=== PATIENT | male | born 1960 | race Caucasian/White ===

== ENCOUNTER 2020-10-17 18:40 | Inpatient (IN) | payer MEDICARE, OTHER ==
[~2020-10-17] VITALS: Ht 175.3 cm; Wt 90.7 kg
[2020-10-18] MEDS ORDERED: PROTONIX40 MG PO (14:10)
[2020-10-18] MEDS ORDERED: LISINOPRIL20 MG PO (14:10)
[2020-10-18 15:24] LABS: HEMOGLOBIN 8.2 gm/dl (14.0-17.5); RED BLOOD COUNT 3.7 M/UL (4.20-5.50); WHITE BLOOD COUNT 8.7 K/UL (4.5-11.0)
[2020-10-18 16:03] LABS: BUN/CREATININE RATIO 14 (0-10)
[2020-10-19 02:31] LABS: HEMOGLOBIN 7.5 gm/dl (14.0-17.5); RED BLOOD COUNT 3.52 M/UL (4.20-5.50); WHITE BLOOD COUNT 6.8 K/UL (4.5-11.0)
[2020-10-19 03:34] LABS: BUN/CREATININE RATIO 17 (0-10)
--- NOTE | 2020-10-19 11:25 | NUR ---
PER MD PATIENT TO RECEIVE HUMATE-P PER IV. DISCUSSED WITH PHARMACY PROPER IV ADMINISTRATION OF THIS MEDICATION. PATIENT STATES HE HAS HAD THIS MEDICATION IN THE PAST AND TOLERATED WELL. MD AWARE. INSTRUCTED TO HOLD PRBC'S TODAY. MD AND NURSE PRACTITIONER PHYSICIANS ASSISTANT AWARE
--- NOTE | 2020-10-19 12:58 | NUR ---
PATIENT HUMATE INFUSION FINISHED. PATIENT TOLERATED WELL. ALL VS REMAIN WNL
--- NOTE | 2020-10-19 14:18 | NUR ---
TRANSFER PATIENT BACK TO CHAIR, ASSIST OF 2 AND WALKER. PATIENT TRANSFERRED WITH NO TROUBLE NON WEIGHT BEARING TO THE LEFT LEG, PIVOT ON RIGHT, RESTING QUIETLY WILL CONTINUE TO MONITOR
[2020-10-19 19:22] LABS: HEMOGLOBIN 7.7 gm/dl (14.0-17.5); RED BLOOD COUNT 3.47 M/UL (4.20-5.50)
[2020-10-19 19:23] LABS: WHITE BLOOD COUNT 4.8 K/UL (4.5-11.0)
[2020-10-20 02:38] LABS: HEMOGLOBIN 7.5 gm/dl (14.0-17.5); RED BLOOD COUNT 3.39 M/UL (4.20-5.50); WHITE BLOOD COUNT 4.6 K/UL (4.5-11.0)
[2020-10-20 03:02] LABS: BUN/CREATININE RATIO 16 (0-10)
[2020-10-21 01:44] LABS: HEMOGLOBIN 7.8 gm/dl (14.0-17.5); RED BLOOD COUNT 3.59 M/UL (4.20-5.50)
[2020-10-21 02:42] LABS: BUN/CREATININE RATIO 16 (0-10)
[2020-10-21 05:09] LABS: HBSAG SCREEN Negative (Negative); HEP A AB, IGM Negative (Negative); HEP B CORE AB, IGM Negative (Negative); HEP C VIRUS AB >11.0 (0.0-0.9)
[2020-10-21] MEDS ORDERED: ISOSORBIDE MONO30 MG PO (09:19)
[2020-10-21] MEDS ORDERED: ATORVASTATIN CA20 MG PO (09:19)
[2020-10-21] MEDS ORDERED: FERROUS SULFAT325 MG PO (12:10)
== END 2020-10-21 11:45 | disposition home or self-care (01) | DRG 273 ==
LOC: PROG CARE 10-18 13:34
PROVIDERS: Physician Assistant Medical; ADMIT Internal Medicine
PROC: B24BZZZ Ultrasonography of Heart with Aorta (ICD-10-PCS; 2020-10-19)
PROC: 02583ZZ Destruction of Conduction Mechanism, Percutaneous Approach (ICD-10-PCS; principal; 2020-10-20)
PROC: 02K83ZZ Map Conduction Mechanism, Percutaneous Approach (ICD-10-PCS; 2020-10-20)
PROC: 4A023FZ Measurement of Cardiac Rhythm, Percutaneous Approach (ICD-10-PCS; 2020-10-20)
PROC: 4A0234Z Measurement of Cardiac Electrical Activity, Percutaneous Approach (ICD-10-PCS; 2020-10-20)
DX: I47.1 Supraventricular tachycardia (principal); K55.21 Angiodysplasia of colon with hemorrhage; D68.0 Von Willebrand disease; D50.9 Iron deficiency anemia, unspecified; I10 Essential (primary) hypertension; Z20.822 Contact with and (suspected) exposure to COVID-19; B18.2 Chronic viral hepatitis C; R55 Syncope and collapse; R07.9 Chest pain, unspecified; J44.9 Chronic obstructive pulmonary disease, unspecified; I20.9 Angina pectoris, unspecified; S40.011A Contusion of right shoulder, initial encounter; K74.60 Unspecified cirrhosis of liver; F17.210 Nicotine dependence, cigarettes, uncomplicated; Z88.6 Allergy status to analgesic agent; Z88.8 Allergy status to other drugs, medicaments and biological substances; Z80.9 Family history of malignant neoplasm, unspecified; Z82.49 Family history of ischemic heart disease and other diseases of the circulatory system; Z79.899 Other long term (current) drug therapy; Q27.33 Arteriovenous malformation of digestive system vessel
CPT/HCPCS: ECHO; 36415; 73030; 78452; 80048; 80053; 80061; 80074; 81001; 83010; 83540; 83550; 83615; 83735; 84439; 85025; 85027; 85240; 85245; 86850; 86880; 86900; 86901; 86920; 93005; 93017; 93306; 93613; 93620; 93621; 93623; 93880; 94760; 99152; 99153; A9502; C1730; C1733; C1766; C9113; J0461; J1644; J1756; J2250; J2785; J3010; J7040; J7187; U0002